=== PATIENT | female | born 1995 | race Caucasian/White ===

== ENCOUNTER → 2019-12-27 08:05 | Outpatient (BNVA) | payer BC, SELFPAY | PROVIDERS: Family Provider Family Medicine; PCP Family Medicine; Referring Provider Obstetrics & Gynecology; Visit Provider Obstetrics & Gynecology | DX: Z32.01 Encounter for pregnancy test, result positive (principal) | CPT/HCPCS: 84702 ==

== ENCOUNTER → 2020-01-18 10:51 | Outpatient (BNVA) | payer BC, SELFPAY | PROVIDERS: Family Provider Family Medicine; PCP Family Medicine; Visit Provider Nurse Practitioner Women's Health | DX: Z36.87 Encounter for antenatal screening for uncertain dates (principal); Z3A.01 Less than 8 weeks gestation of pregnancy | CPT/HCPCS: 76817 ==

== ENCOUNTER → 2020-02-02 12:14 | Outpatient (BNVA) | payer BC, SELFPAY | PROVIDERS: Family Provider Family Medicine; PCP Family Medicine; Visit Provider Nurse Practitioner Women's Health | DX: Z01.89 Encounter for other specified special examinations (principal) | CPT/HCPCS: 84315 ==

== ENCOUNTER → 2020-02-22 15:56 | Outpatient (BNVA) | payer BC, SELFPAY | PROVIDERS: Family Provider Family Medicine; PCP Family Medicine; Visit Provider Obstetrics & Gynecology | DX: O26.891 Other specified pregnancy related conditions, first trimester (principal); Z67.91 Unspecified blood type, Rh negative; Z34.90 Encounter for supervision of normal pregnancy, unspecified, unspecified trimester; Z34.80 Encounter for supervision of other normal pregnancy, unspecified trimester | CPT/HCPCS: 80053; 80307; 84315; 85027; 86592; 86762; 86803; 86850; 86900; 87340; 87491; 87591 ==

== ENCOUNTER → 2020-06-12 09:52 | Outpatient (BNVA) | payer BC, SELFPAY | PROVIDERS: Family Provider Family Medicine; PCP Family Medicine; Visit Provider Obstetrics & Gynecology | DX: O26.891 Other specified pregnancy related conditions, first trimester (principal); Z67.91 Unspecified blood type, Rh negative | CPT/HCPCS: 82950; 84315; 85027; 86850 ==

== ENCOUNTER → 2020-08-06 09:51 | Outpatient (BNVA) | payer BC, SELFPAY | PROVIDERS: Family Provider Family Medicine; PCP Family Medicine; Visit Provider Obstetrics & Gynecology | DX: Z34.90 Encounter for supervision of normal pregnancy, unspecified, unspecified trimester (principal) | CPT/HCPCS: 84315; 87081 ==

== ENCOUNTER 2020-08-27 17:10 | Inpatient (IN) | payer BC, SELFPAY ==
[2020-08-27] VITALS (13 sets, daily range): BP systolic 0–144; BP diastolic 0–93; PULSE 67–88; RESP 15; TEMP 36.3–37.1; BMI 24.9
[2020-08-27 18:08] LABS: Basophils % 0.3 %; Eosinophils # 0.1 10^3/uL (0.0-0.8); Eosinophils % 0.4 %; Hematocrit 32.3 % (37.0-47.0); Hemoglobin 10.7 g/dL (11.5-15.3); Lymphocytes # 2.9 10^3/uL (0.8-4.8); Lymphocytes % 21.3 %; Mean Corpuscular HGB Conc 33.1 g/dL (30.0-36.0); Mean Corpuscular Hemoglobin 28.5 pg (28.0-34.0); Mean Corpuscular Volume 85.9 fL (81-99); Mean Platelet Volume 12.5 fL (7.4-10.4); Monocytes # 1.1 10^3/uL (0.2-0.9); Monocytes % 7.7 %; Neutrophils # 9.58 10^3/uL (1.8-7.7); Neutrophils % 69.8 %; Nucleated Red Blood Cells % 0 %; Platelet Count 153 10^3/cmm (130-400); Red Blood Count 3.76 10^6/uL (4.1-5.3); Red Cell Distribution Width 12.4 % (12.1-15.1); White Blood Count 13.7 10^3/uL (4.0-10.0)
[2020-08-27] MEDS: dextrose 5%-lactated ringers 1,000 ML 125 ML IV (18:15)
[2020-08-27] MEDS: miSOPROStol 100 mcg tablet 25 MCG VAGINAL (19:24)
[2020-08-28] VITALS (67 sets, daily range): BP systolic 0–158; BP diastolic 0–97; PULSE 59–107; RESP 16–17; TEMP 36.5–37; O2SAT 97–99
[2020-08-28] MEDS: lactated ringers 1,000 ML 999 ML IV (00:09)
[2020-08-28] MEDS: oxytocin 30 UNIT/500 ML BAG IV (00:16)
--- NOTE | 2020-08-28 01:03 | ANES.PREANE2 ---
Pre-Anesthetic Assessment Pre-Anesthetic Assessment: Height/Weight: Height 1.7 m Weight 72.121 kg Temp Pulse Resp BP Pulse Ox 98.8 F 104 H 15 145/83 98 08/27/20 22:23 08/28/20 01:00 08/27/20 22:23 08/28/20 01:00 08/28/20 00:55 Preop Diagnosis: Labor pain Proposed Procedure: JAIME Was Beta Nerissa taken within 24 hours: N/A Last Intake: 17:00 Social: Social History: No alcohol and No tobacco Exam: Pre-Anes Outpt Exam: alert, oriented x 3, clear to auscultation bilaterally and regular rate & rhythm Airway: Submandibular: WNL Cervical ROM: WNL MP: 2 Dentition: Full History/ROS: No significant history except as noted and No significant complaints Pulmonary: Pulmonary: None reported CV/HEM: CV/HEM: None reported : : None reported Hepatic: Hepatic: None reported GI: GI: None reported Metabolic: Metabolic: None reported Musc/skel: Musc/skel: None reported Neuropsych: Neuropsych: None reported Anesthetic Plan: ASA status: 2 Anesthesia: Regional (specify below) Risk of > 500 ml blood loss (7ml/kg in children): No Meds/Allergies Current Medications: Current Medications Generic Name Dose Route Start Last Admin Trade Name Freq PRN Reason Stop Dose Admin Dextrose/Lactated Ringer's 1,000 mls @ 125 m ls/hr 08/27/20 17:57 08/27/20 21:55 Dextrose 5%-Lact ated Ringers IV 0 mls/hr .Q8H PRN Infusion per label comment s Lactated Ringer's 1,000 mls @ 999 m ls/hr 08/27/20 22:42 08/28/20 00:09 Lactated Ringers IV 999 mls/hr .Q1H1M PRN Administration See label comment s Ropivacaine 200 mg in 100 mls @ 13 mls/hr 08/27/20 22:44 08/28/20 01:03 Naropin Premix EPIDURAL 13 mls/hr .Q7H42M PRN Administration ANESTHESIA Oxytocin 30 unit in 500 ml s @ 1 mls/hr 08/28/20 00:05 08/28/20 00:16 Pitocin IV 1 milliunit/min .Q24H PRN 1 mls/hr LABOR INDUCTION Administration Protocol 1 MILLIUNIT/MIN PFSH Anesthesia PFSH: Medical History No pertinent past medical history Denies diabetes, asthma, hypertension, seizures, DVT/PE PCP: none Surgical History No pertinent past surgical history Family History Father Heart disease Hyperlipidemia Hypertension Lung cancer Family/Other Breast cancer Maternal aunt Grandfather Stroke Maternal grandfather Other Diabetes Denies family history of Colon cancer Ovarian cancer Family history of thyroid problem Uterine cancer Social History Smoking and tobacco status: never smoked Alcohol intake: never Additional social history: - - Female Reproductive History: : 2 Data Anesthesia CBC & Chem 7: 08/27/20 17:50 Other Labs: Laboratory Results - last 48 hr 08/27/20 17:50 WBC 13.7 H RBC 3.76 L Hgb 10.7 L Hct 32.3 L MCV 85.9 MCH 28.5 MCHC 33.1 RDW 12.4 Plt Count 153 MPV 12.5 H Neut % (Auto) 69.8 Lymph % (Auto) 21.3 [place] % (Auto) 7.7 Eos % (Auto) 0.4 Baso % (Auto) 0.3 Neut # (Auto) 9.58 H Lymph # (Auto) 2.9 [place] # (Auto) 1.1 H Eos # (Auto) 0.1 Baso # (Auto) 0.0 Nucleated RBC % (auto) 0 Nucleated RBCs # 0.0 Cardiac Studies: No Data to Display
--- NOTE | 2020-08-28 01:05 | P.ANES_ITS ---
Anesthesia Procedures Procedure/Date: 08/28/20 Epidural: Time Out Performed: Yes Consents Signed: Procedure Consent Consent: requested by attending/covering physician and from patient Lumbar Level: L3-L4 Epidural position: sitting Epidural procedure: sterile prep of area, 1% lidocaine to numb the area, 18 g needle, neg for paresthesia, test d ose given, 1.5% xylocaine 1:200k epi, 0.2% Ropivacaine bolus ml, placed PCEA, no systemic response, sterile dressing applied and 0.2% Ropiavacaine @ mls/hr Additional Comments: MIKE at 7cm. cath placed 2 cm into epid space. Test dose neg. Ropiv 0.2% 6cc and Fentanyl 100 mcg bolus. Pt jethro well
[2020-08-28] MEDS: dextrose 5%-lactated ringers 1,000 ML 100 ML IV (04:05)
[2020-08-28] MEDS: miSOPROStol 200 mcg Tablet 800 MCG PR (06:47)
--- NOTE | 2020-08-28 07:15 | PM.DELIVERY ---
Delivery Note: Date of delivery: August 28, 2020 - PRE-DELIVERY DIAGNOSIS: 24-year-old 2 para 1-0-0-1 at 39 weeks and 1 day gestation GBS negative Rh- Early labor-augmentation of labor POST-DELIVERY DIAGNOSIS: Vaginal delivery on 08/28/2020 PROCEDURE: Vaginal delivery on 08/28/2020 ANESTHESIA: Epidural anesthesia DELIVERING PHYSICIAN: Farshad Browne FACOG PRE-DELIVERY COURSE: Ms. Correa is a 24-year-old 2 para 1-0-0-1 at 39 weeks and 1 day gestation who presented to labor and delivery on 08/27/2020 for induction of labor-elective. On initial evaluation she was noted to be 2 cm, 75% and -2 station and was having irregular contractions and a category 1 tracing which was minimally changed from her visit in the office. Plan was to start patient on Cytotec however reexamination just prior to the Cytotec placement 2 hours later showed that she had made cervical change to 4 cm 75% and -2 station. She was still isiah irregularly with a category 1 tracing. She was observed for 4 more hours and she made slow cervical change to 5 cm, 80% and -2 station and continued to have contractions every 5 to 15 minutes apart. Given that she was in early labor she was admitted. Decision was made to start Pitocin for augmentation of labor. Pitocin was started at midnight and titrated to a maximum of 12 mIU. With this she started to make cervical change and at 4 AM she was noted to be 6 cm and 5 AM 7 cm. Artificial rupture of membranes was performed at 5:38 AM with clear fluid on 08/28/2020. She was noted to be fully dilated at 6:06 AM and was set up in lithotomy position ready to push at 6:30 AM as she was feeling pressure. Station was +3 at this time. DELIVERY NOTE: She was set up in lithotomy position and was pushing effectively. She was noted to be +3 station and continued pushing well. The head delivered in DIRK position, nuchal cord x1 was present. It was unable to be reduced. With the next push the shoulders and rest of the body followed with her next push and delivered through the nuchal cord without any difficulty. Baby was noted to have a body cord as well.. The baby's mouth and nose were suctioned and the baby was placed on the mother's belly. Once cord pulsations stopped the cord was clamped and cut. The placenta delivered spontaneously intact with membranes and was discarded. The fundus was noted to be firm and well contracted initially however became boggy about 5 minutes later. It improved with continued uterine massage and 800 mcg of Cytotec placed rectally.. The vagina and cervix were inspected and no cervical or sulcal lacerations were noted. A second-degree perineal laceration was noted which was repaired with 3-0 Vicryl without any difficulty. Good reapproximation and hemostasis was achieved. Baby Ana born at 6:35 AM on 08/28/2020 with 8/9, weighing 8 pounds 0 ounces, 3640 g, 21 inches long. Placenta was delivered spontaneously intact with membranes at 6:39 AM. Cotyledons were intact , centrally inserted umbilical cord with 3 vessels noted. Estimated blood loss 400 mL. Complications-none, both baby and mother were left to recovery in a stable condition. Coding Level of Care Code Acute Manager Enrollment for g Fwd History History History 2 Term 2 Miscarriages/Ectopic 0 0 Living Children 2 Other History: X 2 1----> 01/29/2018---full-term vaginal delivery at 40 weeks [address] Browne at [facility] [place]. Induction of mpitf-inadpyia-13 hour labor. Baby boy--Luke-8 pounds 15-1/2 ounces, right mediolateral episiotomy. 2---> 09/05/2020--full-term vaginal delivery at 39 weeks and [address] Martinez at [facility] [place]. Induction of uopnw-sfnbdzyx-1-hour labor patient was already in early labor. Baby girl---ADALINE weighing 8 pounds 0 ounces, 3640 g,. Second-degree perineal laceration.
[2020-08-28] MEDS: prenatal vitamin Capsule 1 CAP PO (09:25)
[2020-08-28] MEDS: lanolin oint 7 gm 1 APPLIC TOPICAL (09:26)
[2020-08-28] MEDS: ibuprofen 800 mg tablet PO ×3 (09:26→20:44)
[2020-08-28] MEDS: docusate sodium 100 mg Capsule PO ×2 (09:26→17:34)
[2020-08-28] MEDS: benzocaine-menthol 78 gm Canister 1 SPRAY TOPICAL (09:27)
[2020-08-28 22:12] LABS: Hematocrit 29.3 % (37.0-47.0); Hemoglobin 9.5 g/dL (11.5-15.3); Mean Corpuscular HGB Conc 32.4 g/dL (30.0-36.0); Mean Corpuscular Hemoglobin 28.7 pg (28.0-34.0); Mean Corpuscular Volume 88.5 fL (81-99); Platelet Count 134 10^3/cmm (130-400); Red Blood Count 3.31 10^6/uL (4.1-5.3); Red Cell Distribution Width 12.5 % (12.1-15.1)
[2020-08-29 01:30] VITALS: BP 119/81; PULSE 85; RESP 18; O2SAT 98
[2020-08-29 04:00] VITALS: BP 132/88; PULSE 73; RESP 18; O2SAT 97
[2020-08-29 04:17] VITALS: BP 132/88; PULSE 73; RESP 18
[2020-08-29] MEDS: HYDROcodone-acetaminophen 5-325 mg Tablet PO (04:25)
--- NOTE | 2020-08-29 07:30 | P.DS_ITS ---
Discharge Providers Date of Admission: 08/27/20 21:30 Date of Discharge: August 29, 2020 Attending Provider at Admission: Farshad Domínguez MD Attending Provider at Discharge: Farshad Domínguez MD Primary Care Provider: Morgan Barrera MD Reason for Visit Reason for Visit: induction Hospital Course Discharge Summary: PRE-DELIVERY DIAGNOSIS: 24-year-old 2 para 1-0-0-1 at 39 weeks and 1 day gestation GBS negative Rh- Early labor-augmentation of labor POST-DELIVERY DIAGNOSIS: Vaginal delivery on 08/28/2020 PROCEDURE: Vaginal delivery on 08/28/2020 ANESTHESIA: Epidural anesthesia DELIVERING PHYSICIAN: Farshad Browne FACOG PRE-DELIVERY COURSE: Ms. Correa is a 24-year-old 2 para 1-0-0-1 at 39 weeks and 1 day gestation who presented to labor and delivery on 08/27/2020 for induction of labor- elective. On initial evaluation she was noted to be 2 cm, 75% and -2 station and was having irregular contractions and a category 1 tracing which was minimally changed from her visit in the office. Plan was to start patient on Cytotec however reexamination just prior to the Cytotec placement 2 hours later showed that she had made cervical change to 4 cm 75% and -2 station. She was still isiah irregularly with a category 1 tracing. She was observed for 4 more hours and she made slow cervical change to 5 cm, 80% and -2 station and continued to have contractions every 5 to 15 minutes apart. Given that she was in early labor she was admitted. Decision was made to start Pitocin for augmentation of labor. Pitocin was started at midnight and titrated to a maximum of 12 mIU. With this she started to make cervical change and at 4 AM she was noted to be 6 cm and 5 AM 7 cm. Artificial rupture of membranes was performed at 5:38 AM with clear fluid on 08/28/2020. She was noted to be fully dilated at 6:06 AM and was set up in lithotomy position ready to push at 6:30 AM as she was feeling pressure. Station was +3 at this time. DELIVERY NOTE: She was set up in lithotomy position and was pushing effectively. She was noted to be +3 station and continued pushing well. The head delivered in DIRK position, nuchal cord x1 was present. It was unable to be reduced. With the next push the shoulders and rest of the body followed with her next push and delivered through the nuchal cord without any difficulty. Baby was noted to have a body cord as well.. The baby's mouth and nose were suctioned and the baby was placed on the mother's belly. Once cord pulsations stopped the cord was clamped and cut. The placenta delivered spontaneously intact with membranes and was discarded. The fundus was noted to be firm and well contracted initially however became boggy about 5 minutes later. It improved with continued uterine massage and 800 mcg of Cytotec placed rectally.. The vagina and cervix were inspected and no cervical or sulcal lacerations were noted. A second-degree perineal laceration was noted which was repaired with 3-0 Vicryl without any difficulty. Good reapproximation and hemostasis was achieved. Baby Ana born at 6:35 AM on 08/28/2020 with 8/9, weighing 8 pounds 0 ounces, 3640 g, 21 inches long. Placenta was delivered spontaneously intact with membranes at 6:39 AM. Cotyledons were intact , centrally inserted umbilical cord with 3 vessels noted. Estimated blood loss 400 mL. Complications-none, both baby and mother were left to recovery in a stable condition. HOSPITAL COURSE: She underwent an uncomplicated vaginal delivery on 08/28/2020. She did well on day 0 and was ambulating well, tolerating regular diet, voiding freely, passing flatus. She was breast-feeding without difficulty and bonding well with her daughter. Pain was well-controlled with by mouth pain medication. She denied nausea, vomiting, fever, chills, shortness of breath, leg pain. She had moderate vaginal bleeding. On day # 1 she continued to do well with stable vital signs and stable hemoglobin at 9.5. She was discharged home on day 1 in a stable condition, as she desired early discharge. Warning signs for endometritis, mastitis, DVT/PE were reviewed with her. Post delivery activity restrictions were also reviewed with her at all her questions were answered to her satisfaction. Plans on using control pills for contraception. EXAM AT DISCHARGE: Gen.: No acute distress Heart: S1-S2 heard, regular rate and rhythm Lungs: Clear to auscultation bilaterally Abdomen: Soft, fundus firm below umbilicus, tenderness around incision. Incision: Clean dry and intact with Steri-Strips. Legs: No calf tenderness, trace bilateral pitting pedal edema. CONDITION AT DISCHARGE: Stable Physical Exam Urinary Catheter Management^: Saleh Latex: Cath Placed During This Visit: yes Urinary Catheter Date of Insertion: 08/28/20 Urinary Catheter Time of Insertion: 01:50 Discharge Data Data Completed and Pending: Pending at discharge Category Date Time Status Antibody Identifi cation Routine Lab 08/27/20 17:50 Results Complete Crossmat ch Routine Lab 08/27/20 17:50 Results Rho D Immune Glob ulin Routine Lab 08/27/20 17:50 Results Type and Screen R outine Lab 08/27/20 17:50 Results Labs from last 24 hours 08/28/20 08/28/20 08/27/20 19:40 19:40 17:50 WBC 15.0 H RBC 3.31 L Hgb 9.5 L Hct 29.3 L MCV 88.5 MCH 28.7 MCHC 32.4 RDW 12.5 Plt Count 134 MPV 13.0 H Blood Type B Negative Rho(D) Type Negative Antibody Screen Positive Antibody Identific ation Pending Screen Negative Vitals: Last Vital Signs Temp 98.2 F 08/28/20 17:20 Pulse 73 08/29/20 04:17 Resp 18 08/29/20 04:17 BP 132/88 08/29/20 04:17 Pulse Ox 97 08/29/20 04:00 Discharge Plan Discharge Patient Disposition: Home Condition: Stable Prescriptions: New ibuprofen 800 mg tablet 800 mg PO Q8H Qty: 30 RF: 0 docusate sodium 100 mg Capsule 100 mg PO BID PRN (Reason: constipation) Qty: 30 RF: 0 Continued prenat.vits,dayna,fas-xytm-ojkti Tablet 1 tab PO DAILY RF: 0 Discharge Orders: Discharge Order (Routine); Ordered 08/29/20 Ordered By: Farshad Domínguez Referrals: Farshad Domínguez MD [Physician] - 10/08/20 10:00 am () Discharge Diet: Usual diet Patient Instructions: Bleeding (DC), OB Discharge Report, OB Food/Drug Interaction Guide, OB Home Care, OB Proud Parent Packet, OB Vaginal Deliveries - [facility] Activity Restrictions/Additional Instructions: pelvic rest for 6 weeks and no heavy lifting x 6 weeks Discharge Date/Time: 08/29/20 10:20 Discharge Attestations Time Spent in Discharge Care*: greater than 30 min Quality Metrics Clinical Quality Measures During this hospital stay, did patient experience: None Coding Level of Care Code Acute Engineering Operations Leader for [address]
[2020-08-29 10:53] VITALS: BP 111/77; PULSE 74; RESP 16; TEMP 36.8; O2SAT 98
== END 2020-08-29 10:20 | disposition home or self-care (01) | DRG 807 ==
PROVIDERS: Admitting Provider Obstetrics & Gynecology; Family Provider Family Medicine; PCP Family Medicine; Visit Provider Obstetrics & Gynecology
DX: O69.81X0 Labor and delivery complicated by cord around neck, without compression, not applicable or unspecified (principal); Z37.0 Single live birth; Z3A.39 39 weeks gestation of pregnancy; O70.1 Second degree perineal laceration during delivery
CPT/HCPCS: 12345; 36415; 36430; 51702; 59409; 80500; 84315; 85025; 85027; 85460; 86850; 86870; 86900; 90384; 96374; G0378; G0379; J2795; J3010

== ENCOUNTER → 2021-10-14 12:04 | Outpatient (BNVA) | payer BC, SELFPAY | PROVIDERS: Family Provider Family Medicine; PCP Family Medicine; Visit Provider Obstetrics & Gynecology | DX: Z12.4 Encounter for screening for malignant neoplasm of cervix (principal) | CPT/HCPCS: 88175 ==

== ENCOUNTER → 2022-05-27 14:12 | Outpatient (BNVA) | payer BC, SELFPAY | PROVIDERS: Family Provider Family Medicine; PCP Family Medicine; Visit Provider Clinical Nurse Specialist Adult Health | DX: R53.83 Other fatigue (principal); J06.9 Acute upper respiratory infection, unspecified; B34.9 Viral infection, unspecified | CPT/HCPCS: 80053; 85025; 86140 ==

== ENCOUNTER → 2022-05-28 15:48 | Outpatient (BNVA) | payer BC, SELFPAY | PROVIDERS: Family Provider Family Medicine; PCP Family Medicine; Visit Provider Clinical Nurse Specialist Adult Health | DX: Z00.00 Encounter for general adult medical examination without abnormal findings (principal); J06.9 Acute upper respiratory infection, unspecified; R53.83 Other fatigue | CPT/HCPCS: 85025; 85651 ==

== ENCOUNTER → 2022-06-03 09:58 | Outpatient (BNVA) | payer BC, SELFPAY | PROVIDERS: Family Provider Family Medicine; PCP Family Medicine; Visit Provider Family Medicine | DX: J02.9 Acute pharyngitis, unspecified (principal) | CPT/HCPCS: 80053; 85025; 85651; 86140; 86308; 87070 ==

== ENCOUNTER → 2022-07-09 10:40 | Outpatient (BNVA) | payer BC, SELFPAY | PROVIDERS: Family Provider Family Medicine; PCP Family Medicine; Visit Provider Family Medicine | DX: R53.83 Other fatigue (principal); L65.9 Nonscarring hair loss, unspecified | CPT/HCPCS: 84443; 86618; 86666; 86757 ==

== ENCOUNTER → 2022-09-02 14:38 | Outpatient (BNVA) | payer OTHER, SELFPAY | PROVIDERS: Family Provider Family Medicine; PCP Family Medicine; Visit Provider Nurse Practitioner Women's Health | DX: Z32.00 Encounter for pregnancy test, result unknown (principal) | CPT/HCPCS: 84702 ==

== ENCOUNTER 2022-12-18 07:58 | Outpatient (CLI) | payer OTHER, SELFPAY ==
--- NOTE | 2022-12-18 | US_ITS ---
WS: [id number] OBSTETRICAL ULTRASOUND COMPLETE HISTORY: NORMAL 2ND TRIMESTER COMPARISON: None available. Single intrauterine gestation in transverse presentation. Cervix is Closed and normal length. Cervical length is 4.7 cm. Normal amount of amniotic fluid surrounds the fetus. Placenta: Posterior and fundal, no previa or abruption. Single placental nance. Placenta grade 1 Heart: 147 BPM. Four chambers are identified. RIGHT and LEFT outflow tracts are unremarkable. Anatomy: Intracranial structures and spine are normal. kidneys, stomach and urinary bladd er are unremarkable. Minimal fluid in the renal pelvis is not considered abnormal. Abdominal wall, th ree-vessel cord and cord insertion site are normal. 4 extremities are present. profile: Limited by position. Gender: Female. measurements: BPD = 5.1 cm = 21w3d; HC = 18.6 cm = 20w6d; AC = 14.7 cm = 20w0d; FL = 3.4 cm = 20w4d; EFW: 348 g. Not available. Biometry is internally concordant. AGA by ultrasound: 20w4d LEÓN by ultrasound: 05/03/2023 US/US OB >= 14 weeks fetus [id number] IMPRESSION: 1. Single intrauterine gestation of 20w4d with an LEÓN of 05/03/2023. 2. Limited evaluation of the face and profile due to position of the fet us. Otherwise anatomy is negative.
== END 2022-12-18 07:59 | disposition home or self-care (01) ==
PROVIDERS: Family Provider Family Medicine; PCP Family Medicine; Visit Provider Family Medicine
DX: Z34.82 Encounter for supervision of other normal pregnancy, second trimester (principal); Z3A.20 20 weeks gestation of pregnancy
CPT/HCPCS: 76805

== ENCOUNTER 2023-01-24 15:30 | Outpatient (CLI) | payer OTHER, SELFPAY ==
[2023-01-24 15:30] VITALS: BMI 19.6
[2023-01-24 15:47] VITALS: BP 116/72; PULSE 101
[2023-01-24 16:02] VITALS: BP 107/70; PULSE 100
== END 2023-01-24 16:15 | disposition home or self-care (01) ==
LOC: OPOB 15:33 → OBGYN 15:34
PROVIDERS: Family Provider Family Medicine; PCP Family Medicine; Visit Provider Family Medicine
DX: O36.8190 Decreased fetal movements, unspecified trimester, not applicable or unspecified (principal); Z3A.00 Weeks of gestation of pregnancy not specified
CPT/HCPCS: 99211

== ENCOUNTER → 2023-02-05 08:21 | Outpatient (BNVA) | payer OTHER, SELFPAY | PROVIDERS: Family Provider Family Medicine; PCP Family Medicine; Visit Provider Family Medicine | DX: Z34.80 Encounter for supervision of other normal pregnancy, unspecified trimester (principal); Z51.81 Encounter for therapeutic drug level monitoring | CPT/HCPCS: 82950; 85025 ==

== ENCOUNTER → 2023-02-18 08:27 | Day surgery (SDC) | payer OTHER, SELFPAY ==
[2023-02-18 08:40] VITALS: BP 116/70; PULSE 76; RESP 18; TEMP 36.6; O2SAT 98
[2023-02-18 10:01] VITALS: BP 116/70; PULSE 76; RESP 18; TEMP 36.6
--- NOTE | 2023-02-18 10:10 | PC.NURSE ---
Pt to GI infusions for Rhogam injection. Tolerated well.
== END ==
LOC: GILAB 08:30
PROVIDERS: PCP Family Medicine; Visit Provider Family Medicine
DX: O26.892 Other specified pregnancy related conditions, second trimester (principal); Z3A.00 Weeks of gestation of pregnancy not specified; Z67.91 Unspecified blood type, Rh negative
CPT/HCPCS: 36415; 86850; 86900; 90384; 96372

== ENCOUNTER 2023-03-17 11:43 | Outpatient (CLI) | payer OTHER, SELFPAY ==
[2023-03-17 11:43] VITALS: BMI 22.8
== END 2023-03-17 12:22 | disposition home or self-care (01) ==
LOC: OPOB 11:48 → OBGYN 11:48
PROVIDERS: PCP Family Medicine; Visit Provider Family Medicine
DX: Z36.9 Encounter for antenatal screening, unspecified (principal)
CPT/HCPCS: 59025

== ENCOUNTER 2023-04-02 10:59 | Outpatient (CLI) | payer OTHER, SELFPAY ==
--- NOTE | 2023-04-02 11:00 | US_ITS ---
WS: [id number] BIOPHYSICAL PROFILE AMNIOTIC FLUID HISTORY: Measuring LGA COMPARISON: 12/18/2022 position: Vertex. Cardiac activity: 167 bpm. Cervix: closed. Placenta: Anterolateral, no previa. Placenta grade: 2 Parameters are as follows: Breathin Movement: 2 Tone: 2 Fluid volume: 2 Amniotic Fluid Index: Amniotic fluid index: 13.5 cm; single deep vertical pocket 4.5 cm. US/US OB lmt w/ BPP wo NST IMPRESSION: 1. Biophysical profile score: 8/8. 2. Normal amniotic fluid index.
== END 2023-04-02 11:00 | disposition home or self-care (01) ==
LOC: RAD 11:01
PROVIDERS: PCP Family Medicine; Visit Provider Family Medicine
DX: Z34.80 Encounter for supervision of other normal pregnancy, unspecified trimester (principal)
CPT/HCPCS: 76815; 76819

== ENCOUNTER 2023-05-07 06:10 | Inpatient (IN) | payer OTHER, SELFPAY ==
[2023-05-07] VITALS (53 sets, daily range): BP systolic 93–136; BP diastolic 54–90; PULSE 62–93; RESP 16–18; TEMP 36.6–37; O2SAT 92–100; BMI 25.0
[2023-05-07 05:46] LABS: Nitrazine Paper, PH Negative
[2023-05-07 05:53] LABS: Actim Prom Positive
[2023-05-07 06:57] LABS: Basophils % 0.2 %; Eosinophils # 0.1 10^3/uL (0.0-0.8); Eosinophils % 0.4 %; Hemoglobin 10.8 g/dL (11.5-15.3); Lymphocytes # 3.2 10^3/uL (0.8-4.8); Lymphocytes % 22.7 %; Mean Corpuscular HGB Conc 32.7 g/dL (30.0-36.0); Mean Corpuscular Hemoglobin 27.2 pg (28.0-34.0); Mean Corpuscular Volume 83.1 fl (81-99); Monocytes # 0.8 10^3/uL (0.2-0.9); Monocytes % 5.6 %; Neutrophils # 9.91 10^3/uL (1.8-7.7); Neutrophils % 70.5 %; Nucleated Red Blood Cells % 0 %; Platelet Count 184 10^3/cmm (130-400); Red Blood Count 3.97 10^6/uL (4.1-5.3); Red Cell Distribution Width 12.6 % (12.1-15.1); White Blood Count 14.1 10^3/uL (4.0-10.0)
[2023-05-07] MEDS: ampicillin 2,000 MG in sodium chloride 0.9% (plus) 50 ML 100 MG IV (07:13)
[2023-05-07] MEDS: dextrose 5%-lactated ringers 1,000 ML 125 ML IV (07:50)
--- NOTE | 2023-05-07 08:01 | PM.HP ---
Providers/Chief Complaint Admitting Physician: Desean Jackson MD Primary Care Provider: Morgan Barrera MD Chief Complaint: contractions and PROM History of Present Illness Astrid Correa is a 27 year old @ 40.4 weeks by LMP. Preg c/b late transfer of care (27 weeks), Rh negative, h/o heavy bleeding without hemorrhage, GBS bacteruria. The patient was having contractions overnight and around 3:00 in the morning she started noticing leaking of fluid. Because of this she presented to labor and delivery for further evaluation. In labor and delivery she was noted to be 4 cm dilated with 75% effacement. Nitrazine was negative, however ActimProm was positive. For this reason the patient was kept due to spontaneous rupture membranes. The patient denies any chest pains, shortness of breath, nausea, vomiting, diarrhea, constipation, dysuria, fever, vaginal bleeding. Medications/Allergies Home Medications Medication Instructions Recorded Confirmed Last Taken Type prenat.vits,dayna,yqs-cawt-bywro 1 tab PO DAILY 02/04/23 05/05/23 02/18/23 History ferrous sulfate 325 mg (65 mg 325 mg PO DAILY #30 tabs 02/18/23 05/05/23 Unknown Rx iron) tablet Allergies Allergy/AdvReac Type Severity Reaction Status Date / Time No Known Allergies Allergy Verified 03/06/23 08:24 PFSH Acute PFSH: Medical History (Updated 05/07/23 @ 08:09 by Desean Jackson MD) No pertinent past medical history Denies diabetes, asthma, hypertension, seizures, DVT/PE PCP: none Surgical History No pertinent past surgical history Family History Father Heart disease Hyperlipidemia Hypertension Lung cancer Family/Other Breast cancer Maternal aunt, diagnosed in her 30s or 40s Grandfather Stroke Maternal grandfather Denies family history of Colon cancer Ovarian cancer Diabetes Family history of thyroid problem Uterine cancer Social History Smoking and tobacco status: never smoked Alcohol intake: never Substance/Drug Use: never Female Reproductive History: : 3 Vitals/I&O/Wt Last Vital Signs Pulse 77 06/29/23 07:48 Resp 18 05/07/23 06:08 BP 129/77 05/07/23 07:48 O2 Del Method Room Air 05/07/23 06:12 Weight last 48 hrs Weight 160 lb Physical Exam Narrative: General: Alert and oriented x3 Eyes: Pupils equal round and reactive to light and accommodation Mouth: Mucous membranes moist, pharynx non-erythematous Cardiac: Regular rate and rhythm without murmurs Lungs: Clear to auscultation bilaterally without wheezes, crackles or rhonchi Abdomen: Soft, non-tender, fundus consistent with gestational age : Cervix is dilated to 5/90/-2/soft/vertex Extremities: Trace edema in the bilateral lower extremities Data 05/07/23 06:38 A&P Assessment and plan (1) Supervision of normal intrauterine in multigravida: The patient is doing well at this time. We will proceed with routine intrapartum care. The patient had GBS bacteriuria on her initial urine culture at [facility]. We will treat her with ampicillin. We will forego adding IV Pitocin at this time until her antibiotics are in as she is making change. If she is not continue to make change after the second dose of antibiotics then, we will plan to add Pitocin at that time. heart tones are currently in the mid 130s with moderate variability good accelerations with a category 1 tracing. Contractions are not graphing well, however the patient is feeling them sporadically. The patient is requesting a laboring epidural and we will get this set up for her. All questions were answered. Continue with routine intrapartum management of labor at this time. (2) Spontaneous rupture of membranes: Attestations Medical Necessity Statement*: Patient will be here for greater than 2 midnights due to routine intrapartum and management of labor and delivery. Coding Level of Care Code Acute Code for Chg Fwd Diagnoses Supervision of normal intrauterine in multigravida Z34.80 Spontaneous rupture of membranes
[2023-05-07] MEDS: lactated ringers 1,000 ML 999 ML IV (08:20)
--- NOTE | 2023-05-07 08:30 | P.ANES_ITS ---
Anesthesia Procedures Procedure/Date: 05/08/23 Epidural: Time Out Performed: Yes Consents Signed: Procedure Consent Consent: requested by attending/covering physician, from patient, from other, risks and benefits reviewed, patient agrees to proceed and emergency procedure Lumbar Level: L3-L4 Epidural position: sitting Epidural procedure: ster ile prep of area, 1% lidocaine to numb the area, 18 g needle, negative for paresthesia passed, neg for paresthesia, test dose given, 1.5% xylocaine 1:200k epi (5), 0.2% Ropivacaine bolus ml (5), placed PCEA, no systemic response, sterile dressing applied, L.U.D. no apparent complications and 0.2% Ropiavacaine @ mls/hr (10)
--- NOTE | 2023-05-07 11:25 | ANES.PREANE2 ---
Pre-Anesthetic Assessment Height/Weight: Height 1.7 m Weight 72.575 kg Pulse Resp BP Pulse Ox O2 Del Method 93 18 101/66 100 Room Air 05/07/23 11:14 05/07/23 06:08 05/07/23 11:14 05/07/23 09:17 05/07/23 06:12 Epidural Familial anesthetic complications: None Was Beta Nerissa taken within 24 hours: N/A Was Clonidine taken within 24 hours: N/A Last intake: dr. aline Rodriguez No alcohol and No tobacco Exam alert, oriented x 3, clear to auscultation bilaterally and regular rate & rhythm Airway Mallampati: Class III Dentition: full Anesthetic Plan ASA status: 2 Anesthesia: Regional (specify below) Other: epidural Risk of > 500 ml blood loss (7ml/kg in children): Yes, adequate IV access and fluids planned Medications/Allergies Home Medications Medication Instructions Recorded Confirmed Last Taken Type prenat.vits,dayna,kwy-zugw-gqvlu 1 tab PO DAILY 02/04/23 05/05/23 02/18/23 History ferrous sulfate 325 mg (65 mg 325 mg PO DAILY #30 tabs 02/18/23 05/05/23 Unknown Rx iron) tablet Allergies Allergy/AdvReac Type Severity Reaction Status Date / Time No Known Allergies Allergy Verified 03/06/23 08:24 Current Medications Generic Name Dose Route Start Last Admin Trade Name Freq PRN Reason Stop Dose Admin Dextrose/Lactated Ringer's 1,000 mls @ 125 mls/hr 05/07/23 06:15 05/07/23 07:50 Dextrose 5%-Lactated Ringers IV 125 mls/hr .Q8H RICKY Administration Lactated Ringer's 1,000 mls @ 999 mls/hr 05/07/23 07:58 05/07/23 09:32 Lactated Ringers IV Infused .Q1H1M PRN Infusion See label comments Ropivacaine 100 mg in 50 mls @ 10 mls/hr 05/07/23 08:00 05/07/23 09:24 Naropin Syringe EPIDURAL 10 mls/hr .Q5H RICKY Administration PFSH Anesthesia Medical History (Updated 05/07/23 @ 08:09 by Desean Jackson MD) No pertinent past medical history Denies diabetes, asthma, hypertension, seizures, DVT/PE PCP: none Surgical History No pertinent past surgical history Family History Father Heart disease Hyperlipidemia Hypertension Lung cancer Family/Other Breast cancer Maternal aunt, diagnosed in her 30s or 40s Grandfather Stroke Maternal grandfather Denies family history of Colon cancer Ovarian cancer Diabetes Family history of thyroid problem Uterine cancer Social History Smoking and tobacco status: never smoked Alcohol intake: never Substance/Drug Use: never Female Reproductive History : 3 Data Anesthesia 05/07/23 06:38 Short CBC 05/07/23 Range/Units 06:38 WBC 14.1 H (4.0-10.0) 10^3/uL Hgb 10.8 L (11.5-15.3) g/dL Hct 33.0 L (37.0-47.0) % MCV 83.1 (81-99) fl Plt Count 184 (130-400) 10^3/cmm Neut % (Auto) 70.5 % Neut # (Auto) 9.91 H (1.8-7.7) 10^3/uL Cardiac Studies: No Data to Display Anesthesia Procedures Epidural Time Out Performed: Yes Consents Signed: Procedure Consent Consent: requested by attending/covering physician, from patient, from other, risks and benefits reviewed and patient agrees to proceed Lumbar Level: L3-L4 Epidural position: laying on side Epidural procedure: sterile prep of area, 1% lidocaine to numb the area, 18 g needle, negative for paresthesia passed, neg for paresthesia, test dose given, 1.5% xylocaine 1:200k epi, 0.2% Ropivacaine bolus ml (5), placed PCEA, no systemic response, sterile dressing applied, L.U.D. no apparent complications and 0.2% Ropiavacaine @ mls/hr (10) Additional Comments: MIKE at 4 cm, threaded to 10 cm
[2023-05-07] MEDS: ampicillin 1,000 MG in sodium chloride 0.9% (plus) 50 ML 100 MG IV (11:27)
--- NOTE | 2023-05-07 15:32 | P.PCNOB_ITS ---
Delivery Note: Date of delivery: May 07, 2023 Pre-delivery diagnoses: 1. Intrauterine at 40.6 weeks gestation 2. Rh- status 3. History of heavy bleeding 4. GBS bacteruria Post-delivery diagnoses: 1. Intrauterine status post spontaneous vaginal delivery at 40.6 weeks gestation 2. Rh- status 3. History of heavy bleeding 4. GBS bacteruria 5. Delivery of infant female weighing 8 pounds 10 ounces with Apgars of 7 and 8 needing respiratory assistance. Procedure: Spontaneous vaginal delivery Delivering Physician: Desean Jackson MD Estimated blood loss (mL): 150 Findings: 1. Infant female weighing 8 pounds 7 ounces with Apgars of 7 and 8 2. Intact placenta with central umbilical cord insertion site Pre-Delivery Course: Astrid Correa is a 27 year old G3 now P3 status post spontaneous vaginal delivery @ 40.6 weeks by LMP. Preg c/b late transfer of care (27 weeks), Rh negative, h/o heavy bleeding without hemorrhage, GBS bacteriuria. The patient presented to labor and delivery with concerns for spontaneous rupture membranes and contractions. The contractions started on the evening of 05/06/2023. The patient had concern for rupture of membranes at approximately 3:30 AM on 05/07/2023. In triage her actimProm was positive and she was 4 cm dilated. After 2 hours she had changed to 5 cm. She was kept for spontaneous rupture of membranes. The patient was given IV ampicillin for GBS prophylaxis due to GBS bacteriuria in early . She received 2 doses prior to delivery. The patient received a laboring epidural. Once her second dose was in, she was making slow change, however had few contractions, so IV Pitocin was started to augment her labor. The patient then began to have regular contractions. The patient was complete by 1430 on 05/07/2023. Delivery: The forebag was noted and AROM was carried out. Clear fluid was noted. The patient began pushing at 1435 on 05/07/2023. The patient pushed well and on the second contraction the infant delivered in the OA position. There was no nuchal cord. The left shoulder was the anterior shoulder and it delivered with ease. The rest of the infant delivered without complication. The infant was crying immediately upon delivery and the infant's mouth and nose were bulb suctioned by myself. The infant was placed on the mother's chest where the nurses were waiting to care for her. The cord was clamped by myself and cut by the 's grandmother. Cord blood was obtained. The cord was then drained of blood and traction was placed on the umbilical cord. The uterus was massaged and the placenta delivered without complication at 1444 on 05/07/2023. The placenta was noted to be intact with a central umbilical cord insertion site. The cervix was inspected and no lacerations were noted. Uterine massage was carried out and the patient had mild to moderate bleeding. The vaginal wall was inspected and there was a small second-degree laceration in the midline perineal region. This was repaired using 3-0 Vicryl in a running fashion. Her epidural provided adequate anesthesia. The patient tolerated this well. A rectal exam was done and no sutures were noted in the rectal vault. Currently the mother is doing well and the infant is needing support with oxygen. History History History 3 Term 3 0 Miscarriages/Ectopic 0 Living Children 3 Past Pregnancies Del. Date GA/Weeks Outcome Route Wt Inf Gender Labor Lgth Comp. Anesth esia Location 01/29/18 40 live - full term Vaginal 8 lb 15.5 oz Male 12 [facility] 08/28/20 39 live - full term Vaginal 8 lb Female 8 [facility] 05/07/23 40 live - full term Vaginal 8 lb 10 oz Female 11 hr [facility] Delivery Date: 01/29/18 Last Updated by: Desean Jackson MD Episiotomy, no complications Delivery Date: 08/28/20 Last Updated by: Desean Jackson MD Heavier bleeding but not hemorrhage Delivery Date: 05/07/23 Last Updated by: Desean Jackson MD 2nd degree vaginal laceration. A&P Assessment and plan (1) Spontaneous vaginal delivery: Coding Level of Care Code Acute Code for Chg Fwd Diagnoses Spontaneous vaginal delivery O80
[2023-05-07] MEDS: ibuprofen 800 mg tablet PO (20:58)
[2023-05-08 01:00] VITALS: BP 110/68; PULSE 76; RESP 16; TEMP 37.1
[2023-05-08] MEDS: HYDROcodone-acetaminophen 5-325 mg Tablet PO (02:52)
[2023-05-08 02:56] LABS: Hematocrit 29.8 % (37.0-47.0); Hemoglobin 9.6 g/dL (11.5-15.3); Mean Corpuscular HGB Conc 32.2 g/dL (30.0-36.0); Mean Corpuscular Volume 83.9 fl (81-99); Platelet Count 162 10^3/cmm (130-400); Red Blood Count 3.55 10^6/uL (4.1-5.3); Red Cell Distribution Width 12.5 % (12.1-15.1); White Blood Count 14.6 10^3/uL (4.0-10.0)
[2023-05-08 05:18] VITALS: BP 108/68; PULSE 85; RESP 16; TEMP 36.7; O2SAT 98
--- NOTE | 2023-05-08 06:37 | PM.PN ---
Subjective Subjective: The patient is doing well at this time. She is ambulating, voiding, and her bleeding and pain are decreasing well. She has no concerns today. Vitals/I&O/Wt Last Vital Signs Temp 98.1 F 05/08/23 05:18 Pulse 85 05/08/23 05:18 Resp 16 05/08/23 05:18 BP 108/68 05/08/23 05:18 Pulse Ox 98 05/08/23 05:18 O2 Del Method Room Air 05/08/23 05:18 05/07/23 05/07/23 05/08/23 14:59 22:59 06:59 Intake Total 1154.233 / 3556.775 9380.767 / 2665.000 Output Total 900 / 900 Balance 254.233 / 273.076 9117.767 / 1765.000 Weight last 48 hrs Weight 160 lb Physical Exam Narrative: General: Alert and oriented x3 Cardiac: Regular rate and rhythm without murmurs Lungs: Clear to auscultation bilaterally without wheezes, crackles or rhonchi Abdomen: Soft, mild tenderness over uterus. The uterus is firm and 2 cm below the umbilicus. Extremities: Trace edema in the bilateral lower extremities Urinary Catheter Management: Saleh Latex: Cath Placed During This Visit: yes, but has since been removed by the nurse Reason for Continuing Indwelling Catheter: Decision to DC Catheter Urinary Catheter Date of Insertion: 05/07/23 Urinary Catheter Time of Insertion: 10:00 Date Urinary Catheter Removed: 05/07/23 Time Urinary Catheter Discontinued: 14:32 Data 05/08/23 02:40 A&P Assessment and plan (1) Spontaneous vaginal delivery: The patient is doing well at this time without any signs of complications. We will continue with routine management. Okay to discontinue IV at this time. We will have her start ferrous sulfate twice a day due to anemia with hemoglobin of 9.6. Plan for discharge home tomorrow if she is doing well at that time. Attestations Medical Necessity Statement*: The patient will be here for greater than 2 midnights due to routine intrapartum and management of labor and delivery. Coding Level of Care Code Acute Code for Chg Fwd Diagnoses Spontaneous vaginal delivery O80
[2023-05-08] MEDS: docusate sodium 100 mg Capsule PO ×2 (08:09→18:05)
[2023-05-08] MEDS: prenatal vitamin Capsule 1 CAP PO (08:09)
[2023-05-08] MEDS: ibuprofen 800 mg tablet PO ×3 (08:09→21:46)
[2023-05-08 13:44] VITALS: RESP 16
[2023-05-08 14:33] VITALS: BP 118/64; PULSE 92; RESP 15; TEMP 36.4
[2023-05-08] MEDS: ferrous sulfate EC 325 mg Tablet PO (21:46)
[2023-05-08 22:00] VITALS: BP 126/78; PULSE 71; RESP 18; TEMP 37.2; O2SAT 98
[2023-05-09 03:55] VITALS: BP 106/65; PULSE 76; RESP 16; TEMP 36.9
[2023-05-09] MEDS: prenatal vitamin Capsule 1 CAP PO (09:36)
[2023-05-09] MEDS: ferrous sulfate EC 325 mg Tablet PO (09:36)
[2023-05-09 09:37] VITALS: BP 141/75; PULSE 64; RESP 17; TEMP 36.5
[2023-05-09] MEDS: docusate sodium 100 mg Capsule PO (09:37)
[2023-05-09] MEDS: ibuprofen 800 mg tablet PO (09:37)
--- NOTE | 2023-05-09 09:59 | PM.DCS ---
Discharge Providers Date of Admission: 05/07/23 06:10 Date of Discharge: May 09, 2023 Attending Provider at Admission: Desean Jackson MD Attending Provider at Discharge: Desean Jackson MD Primary Care Provider: Morgan Barrera MD Diagnoses at Discharge Discharge Diagnosis (1) Spontaneous vaginal delivery: Status: Acute Other Information Additional DC diagnoses/information: 1.? Intrauterine status post spontaneous vaginal delivery at 40.6 weeks gestation 2.? Rh- status 3.? History of heavy bleeding 4.? GBS bacteriuria 5.? Delivery of infant female weighing 8 pounds 10 ounces with Apgars of 7 and 8 needing respiratory assistance. Reason for Visit Reason for Visit: contractions and PROM Brief History: Astrid Correa is a 27 year old G3 now P3 status post spontaneous vaginal delivery @ 40.6 weeks by LMP. Preg c/b late transfer of care (27 weeks), Rh negative, h/o heavy bleeding without hemorrhage, GBS bacteriuria. The patient presented to labor and delivery with concerns for spontaneous rupture membranes and contractions.? The contractions started on the evening of 05/06/2023.? The patient had concern for rupture of membranes at approximately 3:30 AM on 05/07/2023.? In triage her actimProm was positive and she was 4 cm dilated.? After 2 hours she had changed to 5 cm.? She was kept for spontaneous rupture of membranes. Hospital Course Hospital Course The patient was given IV ampicillin for GBS prophylaxis due to GBS bacteriuria in early .? She received 2 doses prior to delivery.? The patient received a laboring epidural.? Once her second dose was in, she was making slow change, however had few contractions, so IV Pitocin was started to augment her labor.? The patient then began to have regular contractions.? The patient was complete by 1430 on 05/07/2023. The forebag was noted and AROM was carried out.? Clear fluid was noted.? The patient began pushing at 1435 on 05/07/2023.? The patient pushed well and on the second contraction the delivered in the OA position after 2 contractions. The patient had a small second-degree laceration that was repaired. The patient has done well without any concerning findings. Her bleeding is decreasing well. She is ambulating, voiding, passing gas and tolerating food by mouth. Her hemoglobin after delivery was 9.6, so she will be started on iron as an outpatient. Routine discharge instructions were discussed. The patient is in agreement with current plan of care. All questions were answered. She will follow-up with me at 6 weeks or sooner if needed. Physical Exam Narrative: General: Alert and oriented x3 Cardiac: Regular rate and rhythm without murmurs Lungs: Clear to auscultation bilaterally without wheezes, crackles or rhonchi Abdomen: Soft, mild tenderness over uterus. The uterus is firm and 2 cm below the umbilicus. Extremities: Trace edema in the bilateral lower extremities Urinary Catheter Management: Saleh Latex: Cath Placed During This Visit: yes, but has since been removed by the nurse Reason for Continuing Indwelling Catheter: Decision to DC Catheter Urinary Catheter Date of Insertion: 05/07/23 Urinary Catheter Time of Insertion: 10:00 Date Urinary Catheter Removed: 05/07/23 Time Urinary Catheter Discontinued: 14:32 Discharge Data Studies Completed and Pending Laboratory Results WBC 14.6 10^3/uL (4.0-10.0) H 05/08/23 02:40 RBC 3.55 10^6/uL (4.1-5.3) L 05/08/23 02:40 Hgb 9.6 g/dL (11.5-15.3) L 05/08/23 02:40 Hct 29.8 % (37.0-47.0) L 05/08/23 02:40 MCV 83.9 fl (81-99) 05/08/23 02:40 MCH 27.0 pg (28.0-34.0) L 05/08/23 02:40 MCHC 32.2 g/dL (30.0-36.0) 05/08/23 02:40 RDW 12.5 % (12.1-15.1) 05/08/23 02:40 Plt Count 162 10^3/cmm (130-400) 05/08/23 02:40 MPV 12.0 fL (7.4-10.4) H 05/08/23 02:40 Neut % (Auto) 70.5 % 05/07/23 06:38 Lymph % (Auto) 22.7 % 05/07/23 06:38 [place] % (Auto) 5.6 % 05/07/23 06:38 Eos % (Auto) 0.4 % 05/07/23 06:38 Baso % (Auto) 0.2 % 05/07/23 06:38 Neut # (Auto) 9.91 10^3/uL (1.8-7.7) H 05/07/23 06:38 Lymph # (Auto) 3.2 10^3/uL (0.8-4.8) 05/07/23 06:38 [place] # (Auto) 0.8 10^3/uL (0.2-0.9) 05/07/23 06:38 Eos # (Auto) 0.1 10^3/uL (0.0-0.8) 05/07/23 06:38 Baso # (Auto) 0.0 10^3/uL (0.0-0.1) 05/07/23 06:38 Nucleated RBC % (auto) 0 % 05/07/23 06:38 Nucleated RBCs # 0.0 /100WBC 05/07/23 06:38 Insulin-like GF I Positive 05/07/23 05:40 Blood Type B Negative 05/07/23 06:38 Rho(D) Type Negative 05/07/23 06:38 Antibody Screen Negative 05/07/23 06:38 Screen Negative (Negative) 05/08/23 02:40 Vitals Last Vital Signs Temp 98.5 F 05/09/23 03:55 Pulse 76 05/09/23 03:55 Resp 16 05/09/23 03:55 BP 106/65 05/09/23 03:55 Pulse Ox 98 05/08/23 22:00 O2 Del Method Room Air 05/08/23 22:00 Discharge Plan Discharge Patient Disposition: Home Condition: Stable Prescriptions: New ibuprofen 800 mg Tablet 800 mg PO TID Qty: 30 0RF Continued prenat.vits,dayna,[id number] Tablet 1 tab PO DAILY Changed ferrous sulfate 325 mg (65 mg iron) tablet 325 mg PO BIDWMEAL Qty: 30 3RF Discharge Orders: Discharge Order (Routine); Ordered 05/09/23 Ordered By: Desean Jackson Patient Instructions: Depression (DC), Bleeding (DC), Preeclampsia and Eclampsia After Delivery (GEN), OB Discharge Report, OB Food/Drug Interaction Guide, Opioid Safety, OB Home Care, OB Proud Parent Packet Discharge Attestations Time Spent in Discharge Care*: greater than 30 min Quality Metrics Clinical Quality Measures [ No reported AMI, CVA or VTE this stay] Coding Level of Care Code Acute Code for Chg Fwd Diagnoses Spontaneous vaginal delivery O80
[2023-05-09 14:10] VITALS: BP 107/68; PULSE 80; RESP 18; TEMP 36.8
[2023-05-09 15:00] VITALS: BP 107/68; PULSE 80; RESP 18; TEMP 36.8
== END 2023-05-09 15:00 | disposition home or self-care (01) | DRG 807 ==
LOC: OPOB 06:10 → OBGYN 06:10
PROVIDERS: Admitting Provider Family Medicine; PCP Family Medicine; Visit Provider Family Medicine
DX: O48.0 Post-term pregnancy (principal); Z37.0 Single live birth; O99.824 Streptococcus B carrier state complicating childbirth; Z3A.40 40 weeks gestation of pregnancy; O70.1 Second degree perineal laceration during delivery; O26.893 Other specified pregnancy related conditions, third trimester; Z67.21 Type B blood, Rh negative; O90.81 Anemia of the puerperium; D64.9 Anemia, unspecified
CPT/HCPCS: 36415; 51702; 59025; 59409; 83986; 84112; 85025; 85027; 85460; 86850; 86900; 90384; 99211; J0290; J2795; J7040; J7120; J7121

== ENCOUNTER → 2023-06-18 11:20 | Outpatient (BNVA) | payer OTHER, SELFPAY | PROVIDERS: PCP Family Medicine; Visit Provider Family Medicine | DX: Z39.2 Encounter for routine postpartum follow-up (principal) | CPT/HCPCS: 87491; 87591; 87661; 88175 ==

== ENCOUNTER → 2023-06-19 11:23 | Outpatient (BNVA) | payer OTHER, SELFPAY | PROVIDERS: PCP Family Medicine; Visit Provider Family Medicine | DX: Z39.2 Encounter for routine postpartum follow-up (principal) | CPT/HCPCS: 87491; 87591 ==

== ENCOUNTER → 2024-03-03 08:37 | Outpatient (BNVA) | payer OTHER, SELFPAY | PROVIDERS: PCP Family Medicine; Visit Provider Family Medicine | DX: Z00.00 Encounter for general adult medical examination without abnormal findings (principal); R53.83 Other fatigue; E11.9 Type 2 diabetes mellitus without complications | CPT/HCPCS: 80053; 80061; 84443; 85025 ==

== ENCOUNTER → 2024-06-09 11:52 | Outpatient (BNVA) | payer OTHER, MEDICAID, SELFPAY | PROVIDERS: PCP Family Medicine; Visit Provider Nurse Practitioner Women's Health | DX: N91.2 Amenorrhea, unspecified (principal) | CPT/HCPCS: 82607; 83036; 84403; 84439; 84443; 84481; 84702; 85025 ==

== ENCOUNTER → 2025-02-03 10:00 | Outpatient (BNVA) | payer MEDICAID, SELFPAY | PROVIDERS: PCP Family Medicine; Visit Provider Nurse Practitioner Women's Health | DX: L65.9 Nonscarring hair loss, unspecified (principal); R53.83 Other fatigue | CPT/HCPCS: 82306; 82607; 82728; 82746; 83540; 84403; 84439; 84443; 85025 ==

== ENCOUNTER → 2025-03-28 08:40 | Outpatient (BNVA) | payer MEDICAID, SELFPAY | PROVIDERS: PCP Family Medicine; Visit Provider Family Medicine | DX: J06.9 Acute upper respiratory infection, unspecified (principal); R53.83 Other fatigue | CPT/HCPCS: 87070 ==

== ENCOUNTER → 2025-03-30 11:35 | Outpatient (BNVA) | payer MEDICAID, SELFPAY | PROVIDERS: PCP Family Medicine; Visit Provider Family Medicine | DX: J06.9 Acute upper respiratory infection, unspecified (principal); R53.83 Other fatigue | CPT/HCPCS: 80053; 82607; 84443; 85025; 86140; 86308 ==

== ENCOUNTER → 2025-04-06 14:50 | Outpatient (BNVA) | payer MEDICAID, SELFPAY | PROVIDERS: PCP Family Medicine; Visit Provider Family Medicine | DX: R53.83 Other fatigue (principal) | CPT/HCPCS: 86618; 86666; 86757; 87798 ==

== ENCOUNTER 2025-04-18 14:46 | Outpatient (CLI) | payer MEDICAID, SELFPAY ==
[2025-04-20 16:49] LABS: Anti-Nuclear Antibody Screen NEGATIVE (NEGATIVE)
== END 2025-04-18 14:47 | disposition home or self-care (01) ==
LOC: LAB 14:48
PROVIDERS: PCP Family Medicine; Visit Provider Dermatology
DX: L65.0 Telogen effluvium (principal)
CPT/HCPCS: 36415; 86038